=== PATIENT | female | born 1955 | race Caucasian/White ===

== ENCOUNTER 2022-10-18 09:17 | Emergency (ER) | payer MEDICARE ==
[~2022-10-18] VITALS: Ht 162.6 cm; Wt 159.0 kg
[2022-10-18 09:24] VITALS: BP 111/67
[2022-10-18] MEDS ORDERED: ibuprofen tablet 400 MG TABLET PO ONE (10:25)
[2022-10-18] MEDS ORDERED: LIDOcaine 1% 30ml preserv. free vial IJ ONE (10:25)
[2022-10-18] MEDS ORDERED: bacitracin 15gm ointment TP ONE (10:25)
[2022-10-18] MEDS ORDERED: TETanus/Pertussis (Acell)/Diphther VAC/PF (Tdap-Adult) 0.5ml syringe IMVAC ONE (10:25)
[2022-10-18] MEDS ORDERED: CEPH250T PO (11:41)
== END 2022-10-18 11:50 | disposition home or self-care (01) ==
LOC: ER 09:17
DX: S61.512A Laceration without foreign body of left wrist, initial encounter (principal); W25.XXXA Contact with sharp glass, initial encounter; Y93.89 Activity, other specified; Y92.89 Other specified places as the place of occurrence of the external cause; Y99.8 Other external cause status
CPT/HCPCS: 12002; 90471; 90715; 99283